=== PATIENT | male | born 1985 | race African-American/Black ===

== ENCOUNTER 2021-03-04 18:47 | Emergency (ER) | payer OTHER ==
[~2021-03-04] VITALS: Ht 182.9 cm; Wt 138.0 kg
[2021-03-04] MEDS ORDERED: PREDNISONE 20MG TABLET PO STA (23:24)
[2021-03-04] MEDS ORDERED: IPRATROPIUM BROMIDE (0.02%) 0.5MG/2.5ML NEB HHN STA (23:24)
[2021-03-04] MEDS ORDERED: ALBUTEROL (0.083%) 2.5MG/3ML NEB HHN STA (23:24)
[2021-03-04] MEDS ORDERED: DEXT 5%/0.9% NACL 1,000 ML IV ONE (23:30)
[2021-03-04 23:44] LABS: HEMOGLOBIN. 13.4 g/dL (14.0-18.0); MEAN CORPUSCULAR HEMOGLOBIN 26.2 pg (28.0-32.0); MEAN CORPUSCULAR VOLUME 80.5 fL (80.0-94.0); MEAN PLATELET VOLUME 8.4 fl (7.4-10.4); PLATELET 140 x1000/uL (130-400); RED BLOOD CELL COUNT 5.09 mill/uL (4.7-6.1); RED CELL DISTRIBUTION WIDTH 14.6 % (11.6-14.6)
[2021-03-05] LABS: CHLORIDE 100 mEq/L (98-107)
[2021-03-05] MEDS ORDERED: P50 MT (01:02)
[2021-03-05] MEDS ORDERED: AZIT250T12 MT (01:02)
[2021-03-05] MEDS ORDERED: AZITHROMYCIN 500 MG TABLET PO ONE (01:15)
[2021-03-05] MEDS ORDERED: ALBU18HF2 IH (01:36)
[2021-03-05] MEDS ORDERED: ALBUTEROL (0.5%) 2.5MG/0.5ML NEB HHN ONE (01:45)
[2021-03-05 02:20] VITALS: BP 148/76
[2021-03-05 03:24] LABS: PLATELET ESTIMATE NORMAL
== END 2021-03-05 02:40 | disposition home or self-care (01) ==
LOC: ER 20:36
DX: J18.9 Pneumonia, unspecified organism (principal); E86.0 Dehydration; E87.1 Hypo-osmolality and hyponatremia; J45.901 Unspecified asthma with (acute) exacerbation; E66.9 Obesity, unspecified; Z68.41 Body mass index [BMI] 40.0-44.9, adult; Z86.19 Personal history of other infectious and parasitic diseases
CPT/HCPCS: 36415; 71045; 80053; 83880; 84484; 85025; 94640; 96360; 99284; J7042; J7512; Z7610